=== PATIENT | female | born 1995 | race Caucasian/White ===

== ENCOUNTER 2021-07-19 16:59 | Inpatient (IN) | payer BC ==
[2021-07-19] MEDS ORDERED: Ampicillin 2 GM in Sodium Chloride 0.9% 100 ML IV ONE (17:46)
[2021-07-19] MEDS ORDERED: Sodium Chloride 0.9% 10 ML Syringe FLUSH PRN (17:46)
[2021-07-19] MEDS ORDERED: Nalbuphine 10 MG/1 ML Vial IVPUSH PRN (17:46)
[2021-07-19] MEDS ORDERED: Oxytocin/Lactated Ringers 10 UNIT/1,000 ML BAG IV SCH ×2 (18:00)
[2021-07-19] MEDS: Lactated Ringers 1,000 ML IV SCH ×2 (18:30→21:56)
--- NOTE | 2021-07-19 19:48 | PCM.LDHP ---
L&D History of Present Illness - General Date of Service: 07/19/21 Admit Problem/Dx: Patient Status Order with Admit Dx/Problem 07/19/21 17:46 Patient Status [ADT] Routine Admission Diagnosis/Problem Admission Diagnosis/Problem Source of Information: Patient History Limitations: Reports: No Limitations - History of Present Illness Introduction:: 25 year old at 39w6 here with SROM. Presented to clinic with leaking since 3am. PNC with Dr. Benton without complications. - Related Data Allergies/Adverse Reactions: Allergies Allergy/AdvReac Type Severity Reaction Status Date / Time No Known Allergies Allergy Verified 07/19/21 17:46 Past Medical History - Past Health History Medical/Surgical History: Denies Medical/Surgical History Social & Family History - Family History Family Medical History: No Pertinent Family History - Tobacco Use Tobacco Use Status *Q: Never Tobacco User Second Hand Smoke Exposure: No - Caffeine Use Caffeine Use: Reports: None - Recreational Drug Use Recreational Drug Use: No H&P Review of Systems - Review of Systems: Review Of Systems: See Below General: Reports: No Symptoms HEENT: Reports: No Symptoms Pulmonary: Reports: No Symptoms Cardiovascular: Reports: No Symptoms Gastrointestinal: Reports: No Symptoms Genitourinary: Reports: No Symptoms Musculoskeletal: Reports: No Symptoms Skin: Reports: No Symptoms Psychiatric: Reports: No Symptoms Neurological: Reports: No Symptoms Hematologic/Lymphatic: Reports: No Symptoms Immunologic: Reports: No Symptoms L&D Exam - Exam Exam: See Below - Vital Signs Vital Signs: Last Vital Signs Temp 37.2 C 07/19/21 17:45 Pulse 90 07/19/21 17:45 Resp 16 07/19/21 17:45 BP 139/70 07/19/21 17:45 Pulse Ox 100 07/19/21 17:45 Weight: 96.842 kg - OB Specific Contraction Intensity: Irritability Movement: Active Heart Tones: Present Heart Rate (FHR) Variability: Moderate (6-25 bpm) Presentation: Vertex - White Score White Score Cervix Position: Anterior White Score Effacement: 51-70% White Score Dilation: 1-2 cm - Exam General: Alert, Oriented HEENT: PERRLA, Conjunctiva Clear, EACs Clear, EOMI, Hearing Intact, Mucosa Moist & [place], Nares Patent, Normal Nasal Septum, Posterior Pharynx Clear, TMs Clear Neck: Supple, Trachea Midline Lungs: Clear to Auscultation, Normal Respiratory Effort Cardiovascular: Regular Rate, Regular Rhythm GI/Abdominal Exam: Normal Bowel Sounds, Soft, Non-Tender, No Organomegaly, No Distention, No Abnormal Bruit, No Mass, Pelvis Stable Rectal Exam: Normal Exam Genitourinary: Cervical fluid, Vaginal discharge Back Exam: Normal Inspection, Full Range of Motion Extremities: Normal Inspection, Normal Range of Motion, Non-Tender, No Pedal Edema, Normal Capillary Refill Skin: Warm, Dry, Intact Neurological: Cranial Nerves Intact, Reflexes Equal Bilateral Psychiatric: Alert, Normal Affect, Normal Mood - Patient Data Lab Results Last 24 hrs: Laboratory Results - last 24 hr 07/19/21 07/19/21 07/19/21 Range/Units 18:00 18:07 18:07 WBC 8.69 (3.98-10.04) K/mm3 RBC 4.14 (3.98-5.22) M/mm3 Hgb 11.3 (11.2-15.7) gm/dl Hct 34.5 (34.1-44.9) % MCV 83.3 (79.4-94.8) fl MCH 27.3 (25.6-32.2) pg MCHC 32.8 (32.2-35.5) g/dl RDW Std Deviation 45.1 (36.4-46.3) fL Plt Count 275 (182-369) K/mm3 MPV 9.8 (9.4-12.3) fl Neut % (Auto) 68.0 (34.0-71.1) % Lymph % (Auto) 20.5 (19.3-51.7) % [place] % (Auto) 10.0 (4.7-12.5) % Eos % (Auto) 0.7 (0.7-5.8) Baso % (Auto) 0.2 (0.1-1.2) % Neut # (Auto) 5.91 (1.56-6.13) K/mm3 Lymph # (Auto) 1.78 (1.18-3.74) K/mm3 [place] # (Auto) 0.87 H (0.24-0.36) K/mm3 Eos # (Auto) 0.06 (0.04-0.36) K/mm3 Baso # (Auto) 0.02 (0.01-0.08) K/mm3 SARS-CoV-2 RNA (LEONIE) Negative (NEGATIVE) Blood Type A NEGATIVE Gel Antibody Screen Negative Result Diagrams: 07/19/21 18:07 Problem List Initiated/Reviewed/Updated: Yes Orders Last 24hrs: Active Orders 24 hr Category Date Time Status Patient Status [ADT] Routine ADT 07/19/21 17:46 Active Activity as Tolerated [RC] PFP Care 07/19/21 17:46 Active Communication Order [RC] ASDIRECTED Care 07/19/21 17:46 Active Heart Tones [RC] ASDIRECTED Care 07/19/21 17:47 Active Non Stress Test [RC] PER UNIT ROUTINE Care 07/19/21 17:46 Active Notify Provider [RC] PFP Care 07/19/21 17:46 Active Notify Provider [RC] PRN Care 07/19/21 17:46 Active Peripheral IV Care [RC] . DIRECTED Care 07/19/21 17:47 Active Pump Management, Intrathecal [RC] ASDIRECTED Care 07/19/21 17:46 Active Urinary Catheter Assessment [RC] ASDIRECTED Care 07/19/21 17:46 Active Vital Signs [RC] PER UNIT ROUTINE Care 07/19/21 17:46 Active Regular Diet [DIET] Diet 07/19/21 Dinner Active HEP C VIRUS AB [REF] Stat Lab 07/19/21 18:07 Received PATIENT RETYPE [BBK] Routine Lab 07/19/21 18:58 Ordered RAPID PLASMA REAGIN,RPR [CHEM] Routine Lab 07/19/21 18:07 Received Ampicillin 1 gm Med 07/19/21 22:00 Active Sodium Chloride 0.9% [Normal Saline] 100 ml IV Q4H Lactated Ringers [Ringers, Lactated] 1,000 ml Med 07/19/21 18:00 Active IV ASDIRECTED Nalbuphine [Nubain] Med 07/19/21 17:46 Active 10 mg IVPUSH Q2H PRN Oxytocin/Lactated Ringers [Pitocin in LR 10 Units/1,000 Med 07/19/21 18:00 Active ML] 10 unit in 1,000 ml IV .CONTINUOUS Oxytocin/Lactated Ringers [Pitocin in LR 10 Units/1,000 Med 07/19/21 18:00 Active ML] 10 unit in 1,000 ml IV TITRATE Sodium Chloride 0.9% [Saline Flush] Med 07/19/21 17:46 Active 10 ml FLUSH ASDIRECTED PRN Electronic Heart Tones Ext w TOCO [WOMSER] Oth 07/19/21 17:46 Ordered Routine Electronic Heart Tones Internal [WOMSER] Per Unit Oth 07/19/21 17:46 Ordered Routine Peripheral IV Insertion Adult [OM.PC] Routine Oth 07/19/21 17:46 Ordered Resuscitation Status Routine Resus Stat 07/19/21 17:46 Ordered Medication Orders Ampicillin Sodium 1 gm/ Sodium (Chloride) 100 mls @ 200 mls/hr IV Q4H BARRY Oxytocin/Lactated Ringer's (Pitocin In Lr 10 Units/1,000 Ml) 10 unit in 1,000 mls @ 12 mls/hr IV TITRATE BARRY; Protocol Last Admin: 07/19/21 18:56 Dose: 2 munits/min, 12 mls/hr Documented by: [id number] Oxytocin/Lactated Ringer's (Pitocin In Lr 10 Units/1,000 Ml) 10 unit in 1,000 mls @ 500 mls/hr IV .CONTINUOUS BARRY Lactated Ringer's (Ringers, Lactated) 1,000 mls @ 100 mls/hr IV ASDIRECTED BARRY Last Admin: 07/19/21 18:30 Dose: 100 mls/hr Documented by: [id number] Nalbuphine HCl (Nalbuphine 10 Mg/1 Ml Vial) 10 mg IVPUSH Q2H PRN PRN Reason: Pain Sodium Chloride (Sodium Chloride 0.9% 10 Ml Syringe) 10 ml FLUSH ASDIRECTED PRN PRN Reason: Keep Vein Open Assessment/Plan Comment:: Term SROM No contractions - pitocin Labs ordered. Anticipate unless otherwise indicated.
[2021-07-19] MEDS: Ampicillin 1 GM in Sodium Chloride 0.9% 100 ML IV SCH (21:52)
[2021-07-19] MEDS ORDERED: Acetaminophen 325 MG Tab PO PRN (22:42)
[2021-07-20] MEDS ORDERED: Bupivacaine 0.25% 10 ML SDV ONE
[2021-07-20] MEDS: Lactated Ringers 1,000 ML IV SCH ×2 (00:22→01:37)
--- NOTE | 2021-07-20 00:36 | PCM.PREANE ---
Preanesthetic Assessment - Procedure Proposed Procedure: Labor epidural - Anesthesia/Transfusion/Family Hx Anesthesia History: Prior Anesthesia Without Reaction Family History of Anesthesia Reaction: No Transfusion History: No Prior Transfusion(s) Intubation History: Unknown - Review of Systems General: No Symptoms Pulmonary: No Symptoms Cardiovascular: No Symptoms Gastrointestinal: Abdominal Pain (uterine contractions) Neurological: No Symptoms Other: Reports: None - Physical Assessment NPO Status Date: 07/19/21 NPO Status Time: 19:00 Vital Signs: Last Vital Signs Temp 99.0 F 07/19/21 17:45 Pulse 90 07/19/21 17:45 Resp 16 07/19/21 17:45 BP 139/70 07/19/21 17:45 Pulse Ox 100 07/19/21 17:45 Height: 1.68 m Weight: 96.842 kg ASA Class: 2 Mental Status: Alert & Oriented x3 Airway Class: Mallampati = 2 Dentition: Reports: Normal Dentition, [place] Thyro-Mental Finger Breadths: 3 Mouth Opening Finger Breadths: 3 ROM/Head Extension: Full Lungs: Clear to Auscultation, Normal Respiratory Effort Cardiovascular: Regular Rate, Regular Rhythm, No Murmurs - Lab Values: Laboratory Last Values WBC 8.69 K/mm3 (3.98-10.04) 07/19/21 18:07 RBC 4.14 M/mm3 (3.98-5.22) 07/19/21 18:07 Hgb 11.3 gm/dl (11.2-15.7) 07/19/21 18:07 Hct 34.5 % (34.1-44.9) 07/19/21 18:07 MCV 83.3 fl (79.4-94.8) 07/19/21 18:07 MCH 27.3 pg (25.6-32.2) 07/19/21 18:07 MCHC 32.8 g/dl (32.2-35.5) 07/19/21 18:07 RDW Std Deviation 45.1 fL (36.4-46.3) 07/19/21 18:07 Plt Count 275 K/mm3 (182-369) 07/19/21 18:07 MPV 9.8 fl (9.4-12.3) 07/19/21 18:07 Neut % (Auto) 68.0 % (34.0-71.1) 07/19/21 18:07 Lymph % (Auto) 20.5 % (19.3-51.7) 07/19/21 18:07 [place] % (Auto) 10.0 % (4.7-12.5) 07/19/21 18:07 Eos % (Auto) 0.7 (0.7-5.8) 07/19/21 18:07 Baso % (Auto) 0.2 % (0.1-1.2) 07/19/21 18:07 Neut # (Auto) 5.91 K/mm3 (1.56-6.13) 07/19/21 18:07 Lymph # (Auto) 1.78 K/mm3 (1.18-3.74) 07/19/21 18:07 [place] # (Auto) 0.87 K/mm3 (0.24-0.36) H 07/19/21 18:07 Eos # (Auto) 0.06 K/mm3 (0.04-0.36) 07/19/21 18:07 Baso # (Auto) 0.02 K/mm3 (0.01-0.08) 07/19/21 18:07 RPR Non-reactive (NONREACTIVE) 07/19/21 18:07 SARS-CoV-2 RNA (LEONIE) Negative (NEGATIVE) 07/19/21 18:00 Blood Type A NEGATIVE 07/19/21 18:07 Gel Antibody Screen Negative 07/19/21 18:07 Labs reviewed and okay to proceed - Allergies Allergies/Adverse Reactions: Allergies Allergy/AdvReac Type Severity Reaction Status Date / Time No Known Allergies Allergy Verified 07/19/21 17:46 - Blood Blood Available: No Product(s) Available: None - Acknowledgements Anesthesia Type Planned: Epidural Pt an Appropriate Candidate for the Planned Anesthesia: Yes Alternatives and Risks of Anesthesia Discussed w Pt/Guardian: Yes Pt/Guardian Understands and Agrees with Anesthesia Plan: Yes PreAnesthesia Questionnaire - Past Health History Medical/Surgical History: Denies Medical/Surgical History HEENT History: Reports: None Cardiovascular History: Reports: None Respiratory History: Reports: None Gastrointestinal History: Reports: GERD Genitourinary History: Reports: None 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: Musculoskeletal History: Reports: None Neurological History: Reports: None Psychiatric History: Reports: None Endocrine/Metabolic History: Reports: None Hematologic History: Reports: None Immunologic History: Reports: None Oncologic (Cancer) History: Reports: None - SUBSTANCE USE Tobacco Use Status *Q: Never Tobacco User Second Hand Smoke Exposure: No Recreational Drug Use History: No - HOME MEDS Home Medications: Home Meds Pnv No.95/Ferrous Fum/Folic AC [ Caplet] 1 each PO DAILY 07/19/21 [History] - CURRENT (IN HOUSE) MEDS Current Meds: Current Medications Acetaminophen (Acetaminophen 325 Mg Tab) 650 mg PO Q4H PRN PRN Reason: Pain Last Admin: 07/19/21 22:53 Dose: 650 mg Documented by: Ampicillin Sodium 1 gm/ Sodium (Chloride) 100 mls @ 200 mls/hr IV Q4H BARRY Last Admin: 07/19/21 21:52 Dose: 200 mls/hr Documented by: Oxytocin/Lactated Ringer's (Pitocin In Lr 10 Units/1,000 Ml) 10 unit in 1,000 mls @ 12 mls/hr IV TITRATE BARRY; Protocol Last Titration: 07/19/21 22:45 Dose: 4 munits/min, 24 mls/hr Documented by: Oxytocin/Lactated Ringer's (Pitocin In Lr 10 Units/1,000 Ml) 10 unit in 1,000 mls @ 500 mls/hr IV .CONTINUOUS BARRY Lactated Ringer's (Ringers, Lactated) 1,000 mls @ 100 mls/hr IV ASDIRECTED BARRY Last Admin: 07/20/21 00:22 Dose: 100 mls/hr Documented by: Nalbuphine HCl (Nalbuphine 10 Mg/1 Ml Vial) 10 mg IVPUSH Q2H PRN PRN Reason: Pain Sodium Chloride (Sodium Chloride 0.9% 10 Ml Syringe) 10 ml FLUSH ASDIRECTED PRN PRN Reason: Keep Vein Open Discontinued Medications Ampicillin Sodium 2 gm/ Sodium (Chloride) 100 mls @ 200 mls/hr IV ONETIME ONE Stop: 07/19/21 18:15 Last Admin: 07/19/21 18:35 Dose: 200 mls/hr Documented by:
[2021-07-20] MEDS ORDERED: Ondansetron 4 MG/2 ML SDV IVPUSH PRN (00:40)
[2021-07-20] MEDS ORDERED: fentaNYL 100 MCG/2 ML SDV IVPUSH PRN (00:40)
[2021-07-20] MEDS ORDERED: HYDROmorphone 0.5 MG/0.5 ML Syringe IVPUSH PRN (00:40)
[2021-07-20] MEDS ORDERED: diphenhydrAMINE 50 MG/ML SDV IVPUSH PRN (00:43)
[2021-07-20] MEDS ORDERED: Bupivacaine/fentaNYL/NS 100 ML Bag EPIDUR PRN (00:43)
[2021-07-20] MEDS ORDERED: fentaNYL 100 MCG/2 ML SDV EPIDUR PRN (00:43)
[2021-07-20] MEDS ORDERED: ePHEDrine 50 MG/ML SDV IVPUSH PRN (00:43)
[2021-07-20] MEDS: Ampicillin 1 GM in Sodium Chloride 0.9% 100 ML IV SCH (02:06)
--- NOTE | 2021-07-20 03:36 | PCM.SN.2 ---
- Free Text/Narrative Note: Stage I - Patient presented with SROM. Progressed to complete with overall reassuring heart tones. Pitocin augmentation. Epidural for anesthesia. Stage II - of viable male, weight pending, apgars 8/9 at 0315. Head delivered in controlled manner over intact perineum. Body and shoulders atraumatically. To maternal abdomen. Positive cry. Cord clamped and cut. Cord blood collected. 3v cord. Stage III - of intact placenta. EBL 450. Small 2nd degree laceration repaired with 3-0 vicryl.
[2021-07-20] MEDS ORDERED: Docusate Sodium 100 MG Cap PO PRN (05:07)
[2021-07-20] MEDS ORDERED: Acetaminophen 325 MG Tab PO PRN (05:07)
[2021-07-20] MEDS ORDERED: Benzocaine/Menthol 20%-0.5% Spray 56 GM Canister TOP PRN (05:07)
[2021-07-20] MEDS ORDERED: Ibuprofen 600 MG Tab PO PRN (05:07)
[2021-07-20] MEDS ORDERED: Witch Hazel Medicated Pads 40/Jar TOP PRN (05:07)
--- NOTE | 2021-07-20 09:19 | PCM48HPAN ---
Post Anesthesia Note - EVALUATION WITHIN 48HRS OF ANESTHETIC Vital Signs in Normal Range: Yes Patient Participated in Evaluation: Yes Respiratory Function Stable: Yes Airway Patent: Yes Cardiovascular Function Stable: Yes Hydration Status Stable: Yes Pain Control Satisfactory: Yes Nausea and Vomiting Control Satisfactory: Yes Mental Status Recovered: Yes Vital Signs: Last Vital Signs Temp 37.2 C 07/19/21 17:45 Pulse 90 07/19/21 17:45 Resp 16 07/19/21 17:45 BP 139/70 07/19/21 17:45 Pulse Ox 100 07/19/21 17:45
--- NOTE | 2021-07-21 06:53 | PCM.PNPP ---
- General Info Date of Service: 07/21/21 Functional Status: Reports: Pain Controlled, Tolerating Diet, Ambulating, Urinating - Review of Systems General: Reports: No Symptoms Pulmonary: Reports: No Symptoms Cardiovascular: Reports: No Symptoms Gastrointestinal: Reports: No Symptoms Genitourinary: Reports: No Symptoms Musculoskeletal: Reports: No Symptoms Neurological: Reports: No Symptoms - Patient Data Vital Signs - Most Recent: Last Vital Signs Temp 36.9 C 07/21/21 02:19 Pulse 83 07/21/21 02:19 Resp 16 07/21/21 02:19 BP 108/63 07/21/21 02:19 Pulse Ox 97 07/21/21 02:19 Weight - Most Recent: 96.842 kg I&O - Last 24 Hours: Intake & Output 07/20/21 07/20/21 07/21/21 14:59 22:59 06:59 Intake Total 0 Balance 0 Lab Results - Last 24 Hours: Laboratory Results - last 24 hr 07/20/21 Range/Units 06:17 Blood Type Cancelled Gel Antibody Screen Cancelled Screen 0 ros/5 flds - neg RhIG Candidate? Yes Rhogam Indicated Cancelled Med Orders - Current: Current Medications Acetaminophen (Acetaminophen 325 Mg Tab) 650 mg PO Q4H PRN PRN Reason: mild pain or fever Benzocaine/Menthol (Benzocaine/Menthol 20%-0.5% [place] 56 Gm Canister) 0 gm TOP ASDIRECTED PRN PRN Reason: Perineal Comfort Measure Last Admin: 07/20/21 05:25 Dose: 1 canister Documented by: Docusate Sodium (Docusate Sodium 100 Mg Cap) 100 mg PO BID PRN PRN Reason: Constipation Ibuprofen (Ibuprofen 600 Mg Tab) 600 mg PO Q6H PRN PRN Reason: Mild pain or fever Last Admin: 07/20/21 12:01 Dose: 600 mg Documented by: Jozef Bullock (Jozef Bullock Medicated Pads 40/Jar) 1 pad TOP ASDIRECTED PRN PRN Reason: Perineal Comfort Measure Last Admin: 07/20/21 05:25 Dose: 1 canister Documented by: Discontinued Medications Acetaminophen (Acetaminophen 325 Mg Tab) 650 mg PO Q4H PRN PRN Reason: Pain Last Admin: 07/19/21 22:53 Dose: 650 mg Documented by: Bupivacaine HCl (Bupivacaine 0.25% 10 Ml Sdv) 10 ml .ROUTE .STK-MED ONE Stop: 07/20/21 00:01 Diphenhydramine HCl (Diphenhydramine 50 Mg/Ml Sdv) 25 mg IVPUSH Q6H PRN PRN Reason: pruritis Ephedrine Sulfate (Ephedrine 50 Mg/Ml Sdv) 5 mg IVPUSH ASDIRECTED PRN PRN Reason: Hypotension Fentanyl (Fentanyl 100 Mcg/2 Ml Sdv) 100 mcg EPIDUR Q3H PRN PRN Reason: Pain Last Admin: 07/20/21 00:50 Dose: 100 mcg Documented by: Fentanyl/Bupivacaine HCl (Bupivacaine/Fentanyl/Ns 100 Ml Bag) 100 ml EPIDUR ASDIRECTED PRN PRN Reason: Pain Last Admin: 07/20/21 00:51 Dose: 100 ml Documented by: Ampicillin Sodium 2 gm/ Sodium (Chloride) 100 mls @ 200 mls/hr IV ONETIME ONE Stop: 07/19/21 18:15 Last Admin: 07/19/21 18:35 Dose: 200 mls/hr Documented by: Ampicillin Sodium 1 gm/ Sodium (Chloride) 100 mls @ 200 mls/hr IV Q4H BARRY Last Admin: 07/20/21 02:06 Dose: 200 mls/hr Documented by: Oxytocin/Lactated Ringer's (Pitocin In Lr 10 Units/1,000 Ml) 10 unit in 1,000 mls @ 12 mls/hr IV TITRATE BARRY; Protocol Last Titration: 07/19/21 22:45 Dose: 4 munits/min, 24 mls/hr Documented by: Oxytocin/Lactated Ringer's (Pitocin In Lr 10 Units/1,000 Ml) 10 unit in 1,000 mls @ 500 mls/hr IV .CONTINUOUS BARRY Lactated Ringer's (Ringers, Lactated) 1,000 mls @ 100 mls/hr IV ASDIRECTED BARRY Last Admin: 07/20/21 01:37 Dose: 100 mls/hr Documented by: Nalbuphine HCl (Nalbuphine 10 Mg/1 Ml Vial) 10 mg IVPUSH Q2H PRN PRN Reason: Pain Sodium Chloride (Sodium Chloride 0.9% 10 Ml Syringe) 10 ml FLUSH ASDIRECTED PRN PRN Reason: Keep Vein Open - Infant Interaction Disposition, : in Room with Family Infant Interaction: Holding Infant Feeding: Attempted ; Nursed Fair/Poor Support Person: - Recovery Exam Fundal Tone: Firm Fundal Level: 2 Fingerbreadths Below Umbilicus Fundal Placement: Midline Lochia Amount: Small Lochia Color: Rubra/Red Perineum Description: Other (see below) Other Perinuem Description: Laceration with repair Episiotomy/Laceration: Approximated Bladder Status: Voiding Urinary Elimination: Voided - Exam General: Alert, Oriented GI/Abdominal Exam: Soft, Non-Tender - Problem List & Annotations (1) 40 weeks gestation of SNOMED Code(s): 66900243 Code(s): Z3A.40 - 40 WEEKS GESTATION OF Status: Acute Current Visit: Yes (2) Vaginal delivery SNOMED Code(s): 368167121 Code(s): O80 - ENCOUNTER FOR FULL-TERM UNCOMPLICATED DELIVERY Status: Acute Current Visit: Yes - Problem List Review Problem List Initiated/Reviewed/Updated: Yes - Assessment Assessment:: PPD#0 - Plan Plan:: Routine cares Breast feeding Baby Rh positive, received Rhogam yesterday Discharge home today vs tomorrow
--- NOTE | 2021-07-21 10:40 | PCM.DCSUM1 ---
Discharge Summary - Discharge Data Discharge Date: 07/21/21 Discharge Disposition: Home, Self-Care 01 Condition: Good - Referral to Home Health Primary Care Physician: Lizzy Beavers MD - Discharge Diagnosis/Problem(s) (1) 40 weeks gestation of SNOMED Code(s): 81416459 ICD Code: Z3A.40 - 40 WEEKS GESTATION OF Status: Acute (2) Vaginal delivery SNOMED Code(s): 449447743 ICD Code: O80 - ENCOUNTER FOR FULL-TERM UNCOMPLICATED DELIVERY Status: Acute - Patient Summary/Data Complications: None Consults: None Recommended Follow-up Testing/Procedures: Follow up in 3 weeks Hospital Course: 25 y/o at 39 6/7 wks presented with SROM. Augmented with pitocin. Progressed well to complete dilation and underwent an uncomplicated . See delivery note. did well and was discharged home on PPD#1 - Patient Instructions Diet: Regular Diet as Tolerated Activity: As Tolerated Activity, Other: Pelvic rest for 6 weeks Driving: May Drive Today Showering/Bathing: May Shower Showering/Bathing, Other: May Bathe Notify Provider of: Fever, Increased Pain, Swelling and Redness, Drainage, Nausea and/or Vomiting - Discharge Plan *PRESCRIPTION DRUG MONITORING PROGRAM REVIEWED*: No *COPY OF PRESCRIPTION DRUG MONITORING REPORT IN PATIENT ORLIN: No Home Medications: Home Meds Pnv No.95/Ferrous Fum/Folic AC [ Caplet] 1 each PO DAILY 07/19/21 [History] Docusate Sodium [Colace] 100 mg PO BID PRN cap 07/20/21 [Rx] Ibuprofen [Motrin] 600 mg PO Q6H PRN tablet 07/20/21 [Rx] Patient Handouts: Hand Expression of Breast Milk, and Mastitis, and Self-Care, [id number], Breast Pumping Tips, [id number], Tips for a Good Latch, [id number]-[id number], Care After Vaginal Delivery Referrals: Dana Benton MD [Physician] - (3 weeks for check- Call to schedule appointment. ) - Discharge Summary/Plan Comment DC Time >30 min.: No Total # of Minutes for Discharge Time: 15 - Patient Data Vitals - Most Recent: Last Vital Signs Temp 36.9 C 07/21/21 02:19 Pulse 83 07/21/21 02:19 Resp 16 07/21/21 02:19 BP 108/63 07/21/21 02:19 Pulse Ox 97 07/21/21 02:19 Weight - Most Recent: 96.842 kg Lab Results - Last 24 hrs: Laboratory Results - last 24 hr 07/19/21 07/20/21 Range/Units 18:07 06:17 Hepatitis C Antibody <0.1 (0.0-0.9) s/co ratio Blood Type Cancelled Gel Antibody Screen Cancelled Screen 0 ros/5 flds - neg RhIG Candidate? Yes Rhogam Indicated Cancelled Med Orders - Current: Current Medications Acetaminophen (Acetaminophen 325 Mg Tab) 650 mg PO Q4H PRN PRN Reason: mild pain or fever Benzocaine/Menthol (Benzocaine/Menthol 20%-0.5% [place] 56 Gm Canister) 0 gm TOP ASDIRECTED PRN PRN Reason: Perineal Comfort Measure Last Admin: 07/20/21 05:25 Dose: 1 canister Documented by: Docusate Sodium (Docusate Sodium 100 Mg Cap) 100 mg PO BID PRN PRN Reason: Constipation Ibuprofen (Ibuprofen 600 Mg Tab) 600 mg PO Q6H PRN PRN Reason: Mild pain or fever Last Admin: 07/20/21 12:01 Dose: 600 mg Documented by: Jozef Bullock (Jozef Bullock Medicated Pads 40/Jar) 1 pad TOP ASDIRECTED PRN PRN Reason: Perineal Comfort Measure Last Admin: 07/20/21 05:25 Dose: 1 canister Documented by: Discontinued Medications Acetaminophen (Acetaminophen 325 Mg Tab) 650 mg PO Q4H PRN PRN Reason: Pain Last Admin: 07/19/21 22:53 Dose: 650 mg Documented by: Bupivacaine HCl (Bupivacaine 0.25% 10 Ml Sdv) 10 ml .ROUTE .STK-MED ONE Stop: 07/20/21 00:01 Diphenhydramine HCl (Diphenhydramine 50 Mg/Ml Sdv) 25 mg IVPUSH Q6H PRN PRN Reason: pruritis Ephedrine Sulfate (Ephedrine 50 Mg/Ml Sdv) 5 mg IVPUSH ASDIRECTED PRN PRN Reason: Hypotension Fentanyl (Fentanyl 100 Mcg/2 Ml Sdv) 100 mcg EPIDUR Q3H PRN PRN Reason: Pain Last Admin: 07/20/21 00:50 Dose: 100 mcg Documented by: Fentanyl/Bupivacaine HCl (Bupivacaine/Fentanyl/Ns 100 Ml Bag) 100 ml EPIDUR ASDIRECTED PRN PRN Reason: Pain Last Admin: 07/20/21 00:51 Dose: 100 ml Documented by: Ampicillin Sodium 2 gm/ Sodium (Chloride) 100 mls @ 200 mls/hr IV ONETIME ONE Stop: 07/19/21 18:15 Last Admin: 07/19/21 18:35 Dose: 200 mls/hr Documented by: Ampicillin Sodium 1 gm/ Sodium (Chloride) 100 mls @ 200 mls/hr IV Q4H BARRY Last Admin: 07/20/21 02:06 Dose: 200 mls/hr Documented by: Oxytocin/Lactated Ringer's (Pitocin In Lr 10 Units/1,000 Ml) 10 unit in 1,000 mls @ 12 mls/hr IV TITRATE BARRY; Protocol Last Titration: 07/19/21 22:45 Dose: 4 munits/min, 24 mls/hr Documented by: Oxytocin/Lactated Ringer's (Pitocin In Lr 10 Units/1,000 Ml) 10 unit in 1,000 mls @ 500 mls/hr IV .CONTINUOUS BARRY Lactated Ringer's (Ringers, Lactated) 1,000 mls @ 100 mls/hr IV ASDIRECTED BARRY Last Admin: 07/20/21 01:37 Dose: 100 mls/hr Documented by: Nalbuphine HCl (Nalbuphine 10 Mg/1 Ml Vial) 10 mg IVPUSH Q2H PRN PRN Reason: Pain Sodium Chloride (Sodium Chloride 0.9% 10 Ml Syringe) 10 ml FLUSH ASDIRECTED PRN PRN Reason: Keep Vein Open
== END 2021-07-21 12:10 | disposition home or self-care (01) | DRG 560 ==
LOC: JD.OBCHECK 16:59 → JD.OB 17:46 → JD.OBCHECK 18:29 → OBSVTOIN 07-20 03:15 → JD.OB 07-20 03:16
PROVIDERS: ADMIT Obstetrics & Gynecology; ATTEND Obstetrics & Gynecology
PROC: 10E0XZZ Delivery of Products of Conception, External Approach (ICD-10-PCS; principal; 2021-07-20)
PROC: 0KQM0ZZ Repair Perineum Muscle, Open Approach (ICD-10-PCS; 2021-07-20)
PROC: 3E0R3BZ Introduction of Anesthetic Agent into Spinal Canal, Percutaneous Approach (ICD-10-PCS; 2021-07-20)
PROC: 3E0334Z Introduction of Serum, Toxoid and Vaccine into Peripheral Vein, Percutaneous Approach (ICD-10-PCS; 2021-07-20)
DX: O26.893 Other specified pregnancy related conditions, third trimester (principal); O70.1 Second degree perineal laceration during delivery; Z37.0 Single live birth; Z20.822 Contact with and (suspected) exposure to COVID-19; Z67.11 Type A blood, Rh negative; Z3A.39 39 weeks gestation of pregnancy
CPT/HCPCS: 01967; 36415; 51702; 59025; 59409; 85025; 85461; 86592; 86803; 86850; 86900; 86901; A9270-GY; J0290; J2590; J2790; J3010; J3490; J7120; U0002

== ENCOUNTER 2024-05-16 05:22 | Inpatient (IN) | payer BC ==
[2024-05-16] MEDS: Lactated Ringers 1,000 ML IV SCH (06:09)
[2024-05-16] MEDS ORDERED: ceFAZolin 2 GM in Sodium Chloride 0.9% 50 ML IV ONE (06:21)
[2024-05-16 06:26] LABS: BASOPHILS ABSOLUTE AUTO 0.1 K/mm3 (0.0-0.2); BASOPHILS PERCENT AUTO 0.6 % (0.0-1.0); EOSINOPHILS ABSOLUTE AUTO 0.1 K/mm3 (0.0-0.4); EOSINOPHILS PERCENT AUTO 0.9 % (0.0-6.0); HEMATOCRIT 33.1 % (37.0-47.0); HEMOGLOBIN 10.6 gm/dl (12.0-16.0); IMMATURE GRAN ABSOLUTE AUTO 0.04 K/mm3 (0.00-0.05); IMMATURE GRAN PERCENT AUTO 0.5 % (0.0-0.4); LYMPHOCYTES ABSOLUTE AUTO 2.2 K/mm3 (1.0-4.8); LYMPHOCYTES PERCENT AUTO 28.6 % (24.0-44.0); MEAN CORPUSCULAR HEMOGLOBIN 25.5 pg (28.0-32.0); MEAN CORPUSCULAR VOLUME 79.8 fl (83.0-99.0); MEAN PLATELET VOLUME 9.6 fl (9.4-12.3); MONOCYTES ABSOLUTE AUTO 0.7 K/mm3 (0.0-0.8); MONOCYTES PERCENT AUTO 8.8 % (0.0-8.0); NEUTROPHILS ABSOLUTE AUTO 4.7 K/mm3 (1.8-7.7); NEUTROPHILS PERCENT AUTO 60.6 % (41.0-71.0); PLATELET COUNT,PLT 297 K/mm3 (150-400); RED BLOOD CELL COUNT 4.15 M/mm3 (4.10-5.30); WHITE BLOOD CELL COUNT,WBC 7.82 K/mm3 (3.9-11.3)
[2024-05-16] MEDS: Terbutaline 1 MG/ML SDV SUBCUT ONE (06:30)
[2024-05-16] MEDS ORDERED: Oxytocin/Lactated Ringers 30 UNIT/500 ML BAG IV SCH (06:30)
[2024-05-16] MEDS ORDERED: Ondansetron 4 MG/2 ML SDV ONE (06:53)
[2024-05-16] MEDS ORDERED: Ketorolac 30 MG/ML SDV ONE (06:53)
[2024-05-16] MEDS ORDERED: Lactated Ringers 1,000 ML ONE (06:53)
[2024-05-16] MEDS ORDERED: Morphine PF 10 MG/10 ML SDV ONE (06:53)
[2024-05-16] MEDS ORDERED: ceFAZolin 2 GM Vial ONE (06:54)
[2024-05-16] MEDS: Citric Acid/Sodium Citrate Solution 30 ML Cup PO ONE (07:07)
[2024-05-16] MEDS: Metoclopramide 10 MG/2 ML SDV IVPUSH ONE (07:07)
[2024-05-16] MEDS ORDERED: Phenylephrine 1% 10 MG/ML SDV ONE (07:24)
[2024-05-16] MEDS ORDERED: diphenhydrAMINE 50 MG/ML SDV IVPUSH PRN (07:29)
[2024-05-16] MEDS ORDERED: Ondansetron 4 MG/2 ML SDV IVPUSH PRN (07:29)
[2024-05-16] MEDS ORDERED: Meperidine 50 MG/ML Vial IVPUSH PRN (07:29)
[2024-05-16] MEDS ORDERED: fentaNYL 100 MCG/2 ML SDV IVPUSH PRN (07:29)
[2024-05-16] MEDS ORDERED: ePHEDrine 50 MG/ML SDV IVPUSH PRN (09:10)
[2024-05-16] MEDS ORDERED: Naloxone 0.4 MG/ML SDV IVPUSH PRN (09:10)
[2024-05-16] MEDS ORDERED: Docusate Sodium 100 MG Cap PO PRN (09:10)
[2024-05-16] MEDS ORDERED: Ondansetron 4 MG/2 ML SDV IV PRN (09:10)
[2024-05-16] MEDS: Dextrose 5%-Lactated Ringers 1,000 ML IV SCH (09:27)
[2024-05-16] MEDS: Ketorolac 30 MG/ML SDV IVPUSH SCH (14:00)
[2024-05-16] MEDS: diphenhydrAMINE 50 MG/ML SDV IVPUSH PRN (15:07)
[2024-05-17 05:40] LABS: HEMATOCRIT 29.5 % (37.0-47.0); HEMOGLOBIN 9.6 gm/dl (12.0-16.0); MEAN CORPUSCULAR HGB CONC 32.5 g/dl (32.0-36.0); MEAN CORPUSCULAR VOLUME 79.9 fl (83.0-99.0); MEAN PLATELET VOLUME 9.5 fl (9.4-12.3); PLATELET COUNT,PLT 236 K/mm3 (150-400); RED BLOOD CELL COUNT 3.69 M/mm3 (4.10-5.30); WHITE BLOOD CELL COUNT,WBC 11.58 K/mm3 (3.9-11.3)
[2024-05-17] MEDS: Ibuprofen 600 MG Tab PO SCH (08:28)
[2024-05-17] MEDS: Acetaminophen/oxyCODONE 325-5 MG Tab PO PRN ×2 (11:28→21:27)
== END 2024-05-18 13:41 | disposition home or self-care (01) | DRG 540 ==
LOC: JD.OB 05:22
PROVIDERS: ADMIT Obstetrics & Gynecology; ATTEND Obstetrics & Gynecology
PROC: 3E0334Z Introduction of Serum, Toxoid and Vaccine into Peripheral Vein, Percutaneous Approach (ICD-10-PCS; 2024-05-16)
PROC: 10D00Z1 Extraction of Products of Conception, Low, Open Approach (ICD-10-PCS; principal; 2024-05-16 07:30)
DX: O32.1XX0 Maternal care for breech presentation, not applicable or unspecified (principal); O26.893 Other specified pregnancy related conditions, third trimester; Z67.11 Type A blood, Rh negative; Z3A.39 39 weeks gestation of pregnancy; Z37.0 Single live birth
CPT/HCPCS: 36415; 36430; 59025; 59412; 85025; 85027; 85461; 86592; 86850; 86870; 86900; 86901; A9270-GY; J0690; J1200; J1885; J2274; J2371; J2405; J2765; J2790; J3105; J7120; J7121; J7999